=== PATIENT | male | born 1940 | race Caucasian/White ===

== ENCOUNTER → 2016-05-25 | Outpatient (CLI) | payer OTHER ==
[~2016-05-25] MED LIST: CALC600T57 PO; DIGO0.1262; METO-158 PO; PRAV20TA3 PO; WARF2TAB49 PO; ZOLP10TA6
[2016-05-25 09:16] LABS: Basophils # (auto) 0 uL; Basophils % (auto) 0.8 % (0.0-2.0); Eosinophils # (auto) 0.3 uL; Eosinophils % (auto) 4.6 % (0.0-7.0); Hematocrit 45.6 % (41.0-53.0); Hemoglobin 15.5 g/dL (13.5-17.5); Lymphocytes # (auto) 1.3 uL; Lymphocytes % (auto) 22.5 % (10.0-50.0); Mean Corpuscular Hemoglobin 31.2 pg (28.0-32.0); Mean Corpuscular Volume 91.8 fL (80.0-100.0); Mean Platelet Volume 8.2 fL (7.4-10.4); Monocytes # (auto) 0.5 uL; Monocytes % (auto) 8.4 % (0.0-12.0); Neutrophils # (auto) 3.6 uL; Neutrophils % (auto) 63.7 % (37.0-80.0); Platelet Count (auto) 199 10^3/uL (140-450); Urine Bilirubin Negative (Negative); Urine Color Yellow (Yellow); Urine Glucose Normal (Normal); Urine Ketone Negative (Negative); Urine Mucus FEW (None Seen); Urine Nitrite Negative (Negative); Urine RBC 5 /hpf (0 - 3); Urine Squamous Epithelial Cell FEW /hpf (<5); Urine Urobilinogen Normal (Negative); White Blood Cell 5.7 10^3/uL (4.4-10.8)
[2016-05-25 09:18] LABS: Urine Blood 2+ /uL (Negative)
[2016-05-25 09:40] LABS: Albumin 3.7 g/dL (3.4-5.0); BUN/Creatinine Ratio 16.7; Bilirubin, Total 0.7 mg/dL (0.2-1.0); Calcium 8.8 mg/dL (8.5-10.1); Potassium 4.6 mmol/L (3.5-5.1); Total Protein 6.8 g/dL (6.4-8.2)
== END | disposition home or self-care (01) ==
LOC: LAB 08:19
PROVIDERS: ATTEND Internal Medicine
DX: Z00.00 Encounter for general adult medical examination without abnormal findings (principal); I10 Essential (primary) hypertension; E55.9 Vitamin D deficiency, unspecified
CPT/HCPCS: 36415; 80053; 80061; 81001; 82306; 83036; 84153; 85025

== ENCOUNTER → 2016-11-05 | Outpatient (CLI) | payer OTHER ==
[2016-11-05 09:33] LABS: BUN/Creatinine Ratio 15.7; Calcium 8.7 mg/dL (8.5-10.1); Potassium 4.3 mmol/L (3.5-5.1)
== END | disposition home or self-care (01) ==
LOC: LAB 08:39
PROVIDERS: ATTEND Internal Medicine
DX: C61 Malignant neoplasm of prostate (principal); I48.2 Chronic atrial fibrillation; I10 Essential (primary) hypertension
CPT/HCPCS: 36415; 80048; 80061; 84153; 84443

== ENCOUNTER → 2017-08-18 | Outpatient (CLI) | payer OTHER ==
[2017-08-18 08:21] LABS: Basophils # (auto) 0.1 uL; Basophils % (auto) 1.2 % (0.0-2.0); Eosinophils # (auto) 0.2 uL; Hematocrit 45.1 % (41.0-53.0); Hemoglobin 15.2 g/dL (13.5-17.5); Lymphocytes # (auto) 1.2 uL; Lymphocytes % (auto) 23.4 % (10.0-50.0); Mean Corpuscular Hemoglobin 31.3 pg (28.0-32.0); Mean Corpuscular Hgb Conc. 33.7 g/dL (32.0-36.0); Monocytes # (auto) 0.5 uL; Monocytes % (auto) 9.8 % (0.0-12.0); Neutrophils # (auto) 3.1 uL; Neutrophils % (auto) 61.6 % (37.0-80.0); Nucleated Red Blood Cells % 0.1 %; Platelet Count (auto) 169 10^3/uL (140-450); Red Blood Cells 4.85 10^6/uL (4.5-5.90); Red Cell Distribution Width 13.1 % (11.8-14.3)
[2017-08-18 08:51] LABS: Albumin 3.6 g/dL (3.4-5.0); BUN/Creatinine Ratio 18.8; Bilirubin, Total 0.9 mg/dL (0.2-1.0); Calcium 8.9 mg/dL (8.5-10.1); Potassium 4.3 mmol/L (3.5-5.1); Total Protein 6.6 g/dL (6.4-8.2)
== END | disposition home or self-care (01) ==
LOC: LAB 07:42
PROVIDERS: ATTEND Physician Assistant
DX: Z00.01 Encounter for general adult medical examination with abnormal findings (principal); C61 Malignant neoplasm of prostate; I48.2 Chronic atrial fibrillation; R94.6 Abnormal results of thyroid function studies; Z95.2 Presence of prosthetic heart valve
CPT/HCPCS: 36415; 80053; 80061; 84153; 84443; 85025

== ENCOUNTER → 2017-11-16 | Outpatient (CLI) | payer OTHER | END | disposition home or self-care (01) | LOC: XY 08:17 | PROVIDERS: ATTEND Urology | DX: C61 Malignant neoplasm of prostate (principal); I12.9 Hypertensive chronic kidney disease with stage 1 through stage 4 chronic kidney disease, or unspecified chronic kidney disease; N18.9 Chronic kidney disease, unspecified | CPT/HCPCS: 78306; A9503 ==

== ENCOUNTER → 2018-01-31 | Outpatient (CLI) | payer OTHER ==
[~2018-01-31] VITALS: Ht 30.5 cm; Wt 64.9 kg
[~2018-01-31] MED LIST changes: +ADENOSINE 51 MG in GIVE UN-DILUTED 0 ML IV ONE; +ADENOSINE 51 MG in GIVE UN-DILUTED 0 ML IV STA; +ADENOSINE 55 MG in GIVE UN-DILUTED 0 ML IV ONE
[2018-01-31 10:20] VITALS: BP 119/77
== END | disposition home or self-care (01) ==
LOC: XY 08:05
PROVIDERS: ATTEND Internal Medicine
DX: Z48.812 Encounter for surgical aftercare following surgery on the circulatory system (principal); Z95.2 Presence of prosthetic heart valve
CPT/HCPCS: 78452; 93017; A9500; J0153

== ENCOUNTER → 2018-03-01 | Outpatient (CLI) | payer OTHER ==
[~2018-03-01] MED LIST changes: -ADENOSINE 51 MG in GIVE UN-DILUTED 0 ML IV ONE; -ADENOSINE 51 MG in GIVE UN-DILUTED 0 ML IV STA; -ADENOSINE 55 MG in GIVE UN-DILUTED 0 ML IV ONE
== END | disposition home or self-care (01) ==
LOC: XYW 09:49
PROVIDERS: ATTEND Internal Medicine
DX: Z95.2 Presence of prosthetic heart valve (principal)
CPT/HCPCS: 93306

== ENCOUNTER 2018-05-12 17:18 | Inpatient (IN) | payer OTHER ==
[~2018-05-12] VITALS: Ht 162.6 cm; Wt 72.7 kg
[2018-05-12 18:03] VITALS: BP 129/88
[2018-05-12] MEDS ORDERED: BICA50TA41 PO (18:22)
[2018-05-12] MEDS ORDERED: PRAV20TA3 GT (18:22)
[2018-05-12] MEDS ORDERED: CALCTAB25 PO (18:22)
[2018-05-12] MEDS ORDERED: WARF4TAB31 PO ×2 (18:22)
[2018-05-12] MEDS ORDERED: MET50T GT (18:22)
[2018-05-12] MEDS ORDERED: NITROGLYCERIN 0.4 MG SL TAB SL PRN (18:30)
[2018-05-12] MEDS ORDERED: DIGOXIN (250MCG/ML) 2 ML AMPULE IV ONE (18:30)
[2018-05-12] MEDS ORDERED: PROMETHAZINE HCL 25 MG/ML 1ML IV PRN (18:30)
[2018-05-12] MEDS ORDERED: ACETAMINOPHEN 500 MG TAB PO PRN (18:30)
[2018-05-12] MEDS ORDERED: MORPHINE SULFATE 4 MG/ML SYR/VIAL IV PRN (18:30)
[2018-05-12] MEDS ORDERED: TEMAZEPAM 15 MG CAP PO PRN (18:30)
[2018-05-12 18:55] VITALS: BP 127/63
--- NOTE | 2018-05-12 19:50 | NUR ---
Opening Shift Note Assumed care of patient, awake and alert. No S/S of distress/SOB or pain. Instructed on POC and to call for assist PRN, will continue to monitor for changes Q1hr and PRN.
[2018-05-12] MEDS ORDERED: METOPROLOL TARTRATE 50 MG TAB PO ONE (20:00)
[2018-05-12] MEDS ORDERED: THIAMINE HCL 100 MG TAB PO ONE (20:00)
[2018-05-12] MEDS ORDERED: chlordiazePOXIDE HCL 5 MG CAP PO PRN (20:00)
[2018-05-12] MEDS: HYDROcodone-ACET 5/325MG TAB PO PRN (20:18)
[2018-05-12 22:00] VITALS: BP 105/65
[2018-05-12 22:19] LABS: INR 1.65 (0.9-1.15); Prothrombin Time 17.2 sec (9.27-12.13)
[2018-05-12] MEDS: PRAVASTATIN SODIUM 20 MG TAB PO SCH (23:08)
[2018-05-13 01:20] VITALS: BP 116/81
[2018-05-13] MEDS: SODIUM CHLORIDE 0.9% 1,000 ML IV SCH ×3 (01:22→15:17)
[2018-05-13 05:00] VITALS: BP 125/68
[2018-05-13] MEDS: HYDROcodone-ACET 5/325MG TAB PO PRN ×3 (05:42→20:20)
--- NOTE | 2018-05-13 07:15 | NUR ---
Opening Shift Note Assumed care of patient, awake, alert, and oriented x4. No S/S of distress/SOB or pain. IV in right forearm 20 gauge asymptomatic, intact, patent. Bed locked and in lowest position and call light is within reach. Instructed on POC and to call for assist PRN, and patient verbalized understanding. Will continue to monitor for changes Q1hr and PRN.
[2018-05-13 07:54] LABS: INR 1.58 (0.9-1.15); Prothrombin Time 16.5 sec (9.27-12.13)
[2018-05-13 09:00] VITALS: BP 113/68
[2018-05-13] MEDS: BICALUTAMIDE 50 MG TAB PO SCH (10:00)
[2018-05-13] MEDS: NITROGLYCERIN 0.2MG/HR TOPICAL PATCH TD SCH (10:00)
[2018-05-13] MEDS: DIGOXIN 0.125 MG TAB PO SCH (11:02)
[2018-05-13] MEDS: CALCIUM W/VIT D (600MG/400IU) TAB PO SCH (11:02)
[2018-05-13] MEDS: THIAMINE HCL 100 MG TAB PO SCH (11:03)
[2018-05-13] MEDS: PANTOPRAZOLE 40 MG TAB PO SCH (11:04)
[2018-05-13] MEDS: METOPROLOL TARTRATE 50 MG TAB PO SCH ×2 (11:04→22:55)
--- NOTE | 2018-05-13 11:30 | NUR ---
PRODUCTION WELDER, DR. MORA AT BEDSIDE. NEW ORDERS RECEIVED.
[2018-05-13] MEDS ORDERED: ENOXAPARIN SOD 100 MG/1 ML SYRINGE SC ONE (11:45)
[2018-05-13 11:55] LABS: Basophils # (auto) 0 uL; Basophils % (auto) 0.5 % (0.0-2.0); Eosinophils # (auto) 0 uL; Eosinophils % (auto) 0.1 % (0.0-7.0); Hematocrit 41.3 % (41.0-53.0); Lymphocytes # (auto) 0.7 uL; Lymphocytes % (auto) 8.8 % (10.0-50.0); Mean Corpuscular Hemoglobin 31.9 pg (28.0-32.0); Mean Corpuscular Hgb Conc. 33.9 g/dL (32.0-36.0); Mean Corpuscular Volume 94.2 fL (80.0-100.0); Monocytes # (auto) 0.8 uL; Monocytes % (auto) 10.8 % (0.0-12.0); Neutrophils # (auto) 6.2 uL; Neutrophils % (auto) 79.8 % (37.0-80.0); Nucleated Red Blood Cells % 0.1 %; Platelet Count (auto) 124 10^3/uL (140-450); Red Blood Cells 4.38 10^6/uL (4.5-5.90); Red Cell Distribution Width 12.8 % (11.8-14.3); White Blood Cell 7.8 10^3/uL (4.4-10.8)
[2018-05-13 12:03] LABS: Albumin 3.5 g/dL (3.4-5.0); Calcium 8.4 mg/dL (8.5-10.1); Potassium 3.8 mmol/L (3.5-5.1)
[2018-05-13 12:05] LABS: BUN/Creatinine Ratio 16.4; Bilirubin, Total 1.9 mg/dL (0.2-1.0); Total Protein 6.9 g/dL (6.4-8.2)
[2018-05-13 13:00] VITALS: BP 105/78
--- NOTE | 2018-05-13 15:27 | NUR ---
IV insertion IV access obtained, via clean sterile technique by inserting 22 gauge catheter at LEFT FOREARM after 1 attempt. IV secured properly. No trauma to site. Patient tolerated well.
--- NOTE | 2018-05-13 16:01 | NUR ---
RECEIVED CALL FROM DR. MORA HE SAID PATIENT HAS CARDIAC CLEARANCE FOR SURGERY TOMORROW.
[2018-05-13 17:00] VITALS: BP 139/75
[2018-05-13 22:00] VITALS: BP 135/79
[2018-05-13] MEDS: PRAVASTATIN SODIUM 20 MG TAB PO SCH (22:55)
[2018-05-13] MEDS: ENOXAPARIN SOD 80 MG/0.8ML SYRINGE SC SCH (22:56)
[2018-05-14] MEDS: LORazepam 0.5 MG TAB PO PRN (00:21)
[2018-05-14] MEDS: SODIUM CHLORIDE 0.9% 1,000 ML IV SCH ×3 (00:59→23:08)
[2018-05-14] MEDS ORDERED: DIGOXIN (250MCG/ML) 2 ML AMPULE IV ONE ×2 (01:30→11:00)
[2018-05-14] MEDS: MORPHINE SULFATE 4 MG/ML SYR/VIAL IV PRN (05:08)
[2018-05-14 05:50] VITALS: BP 129/70
--- NOTE | 2018-05-14 07:30 | NUR ---
Opening Shift Note Assumed care of patient, awake, alert, and oriented x4. No S/S of distress/SOB, but patient is reporting left hip pain of 3/10. IV in right forearm 20 gauge asymptomatic, intact, patent, and infusing normal saline @ 100 mL/hour. IV in left forearm 22 gauge asymptomatic, intact, patent, and saline locked. Bed locked and in lowest position and call light is within reach, is at bedside. Instructed on POC and to call for assist PRN, and patient verbalized understanding. Will continue to monitor for changes Q1hr and PRN.
[2018-05-14 09:00] VITALS: BP 135/79
[2018-05-14] MEDS: HYDROcodone-ACET 5/325MG TAB PO PRN (09:28)
[2018-05-14] MEDS: BICALUTAMIDE 50 MG TAB PO SCH (10:00)
[2018-05-14] MEDS: NITROGLYCERIN 0.2MG/HR TOPICAL PATCH TD SCH (10:00)
[2018-05-14] MEDS: THIAMINE HCL 100 MG TAB PO SCH (10:30)
[2018-05-14] MEDS: CALCIUM W/VIT D (600MG/400IU) TAB PO SCH (10:31)
[2018-05-14] MEDS: DIGOXIN 0.125 MG TAB PO SCH (10:32)
[2018-05-14] MEDS: METOPROLOL TARTRATE 50 MG TAB PO SCH ×2 (10:33→21:52)
[2018-05-14] MEDS: PANTOPRAZOLE 40 MG TAB PO SCH (10:33)
[2018-05-14] MEDS: ENOXAPARIN SOD 80 MG/0.8ML SYRINGE SC SCH ×2 (10:34→21:42)
[2018-05-14] MEDS ORDERED: DILTIAZEM HCL 25 MG/5 ML VIAL IV ONE (11:00)
--- NOTE | 2018-05-14 11:00 | NUR ---
WOUND CARE NOTE: ADDED PATIENT TO [facility] MONITORING D/T LOW HOANG AND LEFT HIP FRACTURE. PATIENT ADMITTED TO [facility] WITH DIAGNOSIS OF LEFT HIP FRACTURE. HE WAS NOTED UPON ADMIT TO HAVE A SMALL ABRASION TO THE RIGHT PALMAR HAND, ECCHYMOSIS/ABRASIONS NOTED TO BUE, SCABBED ABRASION TO THE LEFT EAR. ALL WOUNDS WERE PHOTOGRAPHED UPON ADMIT BY BEDSIDE NURSE. PATIENT HAS CURRENT HOANG SCORE OF 12. 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 NO OPEN OR DRAINING WOUNDS NOTED AT THIS TIME. PATIENT WOULD BENEFIT FROM: FREQUENT TURN SCHEDULE Q 2 HOURS, PRN CONDITION PERMITS, WITH PRESSURE REDISTRIBUTION USING PILLOWS/WEDGES, BID/PRN APPLICATION WITH MOISTURE BARRIER CREAM, OPTIFOAM GENTLE SACRAL DRESSING PREVENTATIVE, DIETARY CONSULT FOR LOW HOANG, CONTINUED MONITORING BY WOUND CARE TEAM.
--- NOTE | 2018-05-14 11:15 | NUR ---
A-FIB WITH RVR DARRICK CALLED TO REPORT PATIENT WAS IN A-FIB W/ RVR, WITH HEART RATE OF >170. PAGED EMULSION OPERATOR DR. MORA, AND RECEIVED CALL BACK FROM DR. MORA IMMEDIATELY, AND RECEIVED NEW ORDERS. WILL CONTINUE TO MONITOR PATIENT, NO DISTRESS NOTED AT THIS TIME; PATIENT RESTING IN BED.
--- NOTE | 2018-05-14 11:40 | NUR ---
F/U VITALS FOR A-FIB RVR BP 144/76 mmHg, HR 144 BPM, 02% 90.
[2018-05-14] MEDS ORDERED: DILTIAZEM 125mg/125ml BAG KIT 125 ML IV SCH (12:45)
[2018-05-14 13:00] VITALS: BP_SYST 128; BP_SYST 134; BP_DIAS 69; BP_DIAS 76
[2018-05-14 16:48] VITALS: BP 128/69
--- NOTE | 2018-05-14 19:40 | NUR ---
Opening Shift Note Assumed care of patient, awake and alert. No S/S of distress/SOB or pain. Noted traction on left leg at 5 lbs. Sitter at bedside. Instructed on POC and to call for assist PRN, patient verbalized understanding, will continue to monitor for changes Q1hr and PRN.
[2018-05-14] MEDS: PRAVASTATIN SODIUM 20 MG TAB PO SCH (21:42)
[2018-05-14 22:00] VITALS: BP 147/83
[2018-05-15] MEDS: HYDROcodone-ACET 5/325MG TAB PO PRN ×3 (02:23→22:05)
[2018-05-15] MEDS: LORazepam 0.5 MG TAB PO PRN ×2 (02:24→23:59)
[2018-05-15 06:01] VITALS: BP 115/65
[2018-05-15] MEDS: SODIUM CHLORIDE 0.9% 1,000 ML IV SCH ×2 (06:22→15:26)
[2018-05-15 06:48] LABS: Basophils # (auto) 0 uL; Basophils % (auto) 0.5 % (0.0-2.0); Eosinophils # (auto) 0 uL; Eosinophils % (auto) 0.3 % (0.0-7.0); Hematocrit 37.6 % (41.0-53.0); Lymphocytes # (auto) 0.7 uL; Lymphocytes % (auto) 9.4 % (10.0-50.0); Mean Corpuscular Hemoglobin 32.1 pg (28.0-32.0); Mean Corpuscular Hgb Conc. 34.7 g/dL (32.0-36.0); Mean Corpuscular Volume 92.6 fL (80.0-100.0); Monocytes # (auto) 0.9 uL; Monocytes % (auto) 11.7 % (0.0-12.0); Neutrophils # (auto) 5.9 uL; Neutrophils % (auto) 78.1 % (37.0-80.0); Platelet Count (auto) 127 10^3/uL (140-450); Red Blood Cells 4.06 10^6/uL (4.5-5.90); Red Cell Distribution Width 12.5 % (11.8-14.3); White Blood Cell 7.6 10^3/uL (4.4-10.8)
[2018-05-15 06:53] LABS: INR 1.34 (0.9-1.15); Prothrombin Time 14.1 sec (9.27-12.13)
[2018-05-15 09:00] VITALS: BP 123/77
[2018-05-15] MEDS: ENOXAPARIN SOD 80 MG/0.8ML SYRINGE SC SCH ×2 (09:37→22:00)
[2018-05-15] MEDS: CALCIUM W/VIT D (600MG/400IU) TAB PO SCH (09:38)
[2018-05-15] MEDS: THIAMINE HCL 100 MG TAB PO SCH (09:38)
[2018-05-15] MEDS: DILTIAZEM HCL 120MG ER CAP PO SCH (09:38)
[2018-05-15] MEDS: DIGOXIN 0.125 MG TAB PO SCH (09:39)
[2018-05-15] MEDS: METOPROLOL TARTRATE 50 MG TAB PO SCH ×2 (09:39→21:27)
[2018-05-15] MEDS: PANTOPRAZOLE 40 MG TAB PO SCH (09:39)
[2018-05-15] MEDS: NITROGLYCERIN 0.2MG/HR TOPICAL PATCH TD SCH (09:40)
[2018-05-15] MEDS: BICALUTAMIDE 50 MG TAB PO SCH (09:40)
[2018-05-15 09:42] LABS: Urine Bacteria NONE SEEN /hpf (None Seen); Urine Blood 1+ /uL (Negative); Urine Hyaline Cast FEW /lpf (0 - 2); Urine Mucus FEW (None Seen); Urine Specific Gravity 1.015 (1.001-1.035); Urine WBC <1 /hpf (0 - 3)
--- NOTE | 2018-05-15 10:32 | NUR ---
PT SEEN BY DR. ARCHER HE SPOKE WITH DR. GALVAN, PER DR. ARCHER PT WILL BE SCHEDULED FOR SURGERY TOMORROW. DR. ARCHER ORDERED TO HOLD 2200 DOSE OF LOVENOX. WILL INFORM ASSEMBLER LEATHER GOODS NURSE. Addendum: 05/15/18 at 1043 by Ailin Mane RN PT MADE AWARE HE WILL BE SCHEDULED TOMORROW FOR HIP SURGERY.
--- NOTE | 2018-05-15 12:38 | NUR ---
Nutrition Consult/assessment Notes Please see attached link for complete assessment Est. Needs based on BW (66 kg): 5635-2575 kcal (25-30 kcal/kgBW), 66-85 gms pro (1.0-1.3 gms/kgBW d/t wounds). Will continue to monitor pertinent labs and reassess nutrient need prn Addendum: 05/15/18 at [address] Amended: Links added.
[2018-05-15 13:00] VITALS: BP 123/75
--- NOTE | 2018-05-15 14:12 | NUR ---
PAIN LEFT HIP PAIN 8/10, NORCO GIVEN ORDERED, WILL CONTINUE TO MONITOR.
[2018-05-15 16:55] VITALS: BP 122/72
--- NOTE | 2018-05-15 19:35 | NUR ---
Opening Shift Note Assumed care of patient, awake and alert. No S/S of distress/SOB or pain. Traction on left leg at 5 lbs noted. Instructed on POC and to be NPO after MN, for surgery tomorrow, patient verbalized understanding, instructed to call for assist prn, call light within reach, will continue to monitor for changes Q1hr and PRN.
[2018-05-15] MEDS: PRAVASTATIN SODIUM 20 MG TAB PO SCH (21:27)
[2018-05-16] MEDS: SODIUM CHLORIDE 0.9% 1,000 ML IV SCH ×2 (02:22→15:45)
--- NOTE | 2018-05-16 03:30 | NUR ---
CHG wipes done, linens changed, maintained on NPO, patient verbalized understanding, will continue to monitor
[2018-05-16 06:12] VITALS: BP 128/67
[2018-05-16 06:45] LABS: BUN/Creatinine Ratio 20.8; Calcium 7.6 mg/dL (8.5-10.1); Potassium 3.3 mmol/L (3.5-5.1)
--- NOTE | 2018-05-16 07:00 | NUR ---
Opening Shift Note Assumed care of patient, awake and alert to person, place, and situation. No S/S of distress/SOB or pain. 5 lb traction to left leg. Instructed on POC and to call for assist PRN. Bed locked in the lowest position. Bed rails up x2. Call light in reach.
--- NOTE | 2018-05-16 08:15 | NUR ---
OFF UNIT TO PREOP NO S/S OF DISTRESS NOTED AT THIS TIME.
[2018-05-16] MEDS: HYDROcodone-ACET 5/325MG TAB PO PRN ×2 (08:20→21:36)
[2018-05-16 08:26] VITALS: BP 148/90
[2018-05-16] MEDS ORDERED: ceFAZolin 1GM/50ML 50 ML IV ONE (08:34)
[2018-05-16] MEDS ORDERED: TETRACAINE 1% INJ 2 ML VIAL IJ ONE (08:48)
[2018-05-16] MEDS ORDERED: ONDANSETRON HCL 4 MG/2 ML VIAL ONE (08:49)
[2018-05-16] MEDS ORDERED: PROPOFOL 10 MG/ML 20 ML IV ONE (08:49)
[2018-05-16] MEDS ORDERED: MIDAZOLAM HCL 1MG/1ML-2 ML VIAL ONE (08:49)
[2018-05-16] MEDS ORDERED: MORPHINE SULF(PF) 0.5MG/ML 10ML VIAL ONE (08:49)
[2018-05-16] MEDS ORDERED: fentaNYL CITRATE 100 MCG/2 ML VL ONE (08:53)
[2018-05-16] MEDS: BICALUTAMIDE 50 MG TAB PO SCH ×2 (10:00→14:08)
[2018-05-16] MEDS: NITROGLYCERIN 0.2MG/HR TOPICAL PATCH TD SCH (10:00)
[2018-05-16] MEDS: ENOXAPARIN SOD 80 MG/0.8ML SYRINGE SC SCH ×2 (10:00→21:35)
[2018-05-16] MEDS ORDERED: diphenhdrAMINE HCL 50 MG/1 ML VL IV PRN (10:15)
[2018-05-16] MEDS ORDERED: METOCLOPRAMIDE HCL 5MG/ml INJ 2ml VIAL IV ONE (10:15)
[2018-05-16] MEDS ORDERED: HYDROmorphone HCL 2 MG/ML VL IV PRN (10:15)
[2018-05-16] MEDS ORDERED: NALOXONE HCL 0.4 MG/ML VIAL IV PRN ×2 (10:15)
[2018-05-16] MEDS ORDERED: POTASSIUM EFFERVESENT TAB 25 MEQ PO ONE (12:15)
[2018-05-16] MEDS: DIGOXIN 0.125 MG TAB PO SCH (12:27)
[2018-05-16] MEDS: PANTOPRAZOLE 40 MG TAB PO SCH (12:28)
[2018-05-16] MEDS: THIAMINE HCL 100 MG TAB PO SCH (12:28)
--- NOTE | 2018-05-16 12:30 | NUR ---
BACK TO UNIT DRESSING TO LT HIP CLEAN, DRY, AND INTACT. PATIENT IS ON 4L NC SPO2. AT THE BEDSIDE.
[2018-05-16] MEDS: METOPROLOL TARTRATE 50 MG TAB PO SCH ×2 (12:31→21:36)
[2018-05-16] MEDS: DILTIAZEM HCL 120MG ER CAP PO SCH (12:32)
[2018-05-16] MEDS: CALCIUM W/VIT D (600MG/400IU) TAB PO SCH (12:32)
--- NOTE | 2018-05-16 13:41 | NUR ---
CALLED DR ARCHER TO REPORT PATIENTS HEART RATE 150-174 ORDER OF CARDIZEM 10MG IV ONCE RECEIVED WILL IMPLEMENT ORDERS.
[2018-05-16] MEDS ORDERED: DILTIAZEM HCL 25 MG/5 ML VIAL IV ONE ×2 (13:45→16:15)
--- NOTE | 2018-05-16 14:00 | NUR ---
A. FIB RVR COVERING NURSE PAGED DR. ARCHER AND RECEIVED ORDERS FOR PATIENTS HEART RHYTHM OF A. FIB RVR 180BPM. SEE eMAR.
--- NOTE | 2018-05-16 16:15 | NUR ---
Jaspreet. FIB RVR RECEIVED CALL FROM [facility]. PATIENTS HEART RHYTHM IS A. FIB RVR IN THE 170S. SPOKE WITH DR. ARCHER. NEW ORDER RECEIVED. ORDER READ BACK AND VERIFIED. Addendum: 05/16/18 at 1630 by Alexa Silva RN PAGED DOWNSTAIRS MAID DR. MORA. AWAITING CALL BACK.
--- NOTE | 2018-05-16 16:26 | NUR ---
CALLED BACK DR. MORA AWARE OF A. FIB RVR WITH A RATE OF 176BMP. NEW ORDERS RECEIVED. ORDERS READ BACK AND VERIFIED. Addendum: 05/16/18 at 1630 by Alexa Silva RN PER DR. MORA. OK TO HOLD CARDIZEM IV ORDERED BY DR. ARCHER. HR IS CURRENTLY 100BPM.
[2018-05-16] MEDS ORDERED: DILTIAZEM HCL 120MG ER CAP PO ONE (16:30)
[2018-05-16 17:15] VITALS: BP 126/67
--- NOTE | 2018-05-16 18:00 | NUR ---
PATIENT MENTATION PATIENT IS A/O X4. PATIENT IS TAKING OFF OXYGEN AND OXYGENATION DROPPED TO 80%. PATIENT PLACED ON CONTINUOUS PULSE OX. 4L NC REPLACED. SPO2 INCREASED TO 92%. INSTRUCTED PATIENT TO LEAVE OXYGEN ON. FAMILY AT THE BEDSIDE. PATIENT VERBALIZED UNDERSTANDING. CHIEF FINANCIAL OFFICERCAROL DIXON. SITTER ASSIGNED FOR CHOIR SINGER FOR SAFETY.
--- NOTE | 2018-05-16 19:00 | NUR ---
CLOSING NOTE Patient is awake and alert. No S/S of distress/SOB or pain. Dressing to LT hip clean, dry, and intact. Bed locked in the lowest position. Bed rails up x2. Call light in reach. Endorsed care to housing development specialist nurse.
--- NOTE | 2018-05-16 19:35 | NUR ---
Opening Shift Note Assumed care of patient, awake and alert. No S/S of distress/SOB or pain. Dressing to left hip dry and intact. Maintained on O2 at 4Lpm/NC sating 90%-91%. Updated on POC and to call for assist PRN, patient verbalized understanding, sitter at bedside, will continue to monitor for changes Q1hr and PRN.
--- NOTE | 2018-05-16 20:54 | NUR ---
Transferred patient to [place] [id number] with all personal belongings, sitter at bedside, will continue to monitor
[2018-05-16] MEDS: PRAVASTATIN SODIUM 20 MG TAB PO SCH (21:35)
[2018-05-16 21:48] VITALS: BP 111/54
[2018-05-17] MEDS: MORPHINE SULFATE 4 MG/ML SYR/VIAL IV PRN (01:12)
[2018-05-17] MEDS: SODIUM CHLORIDE 0.9% 1,000 ML IV SCH ×2 (03:44→17:15)
[2018-05-17 05:01] VITALS: BP 100/49
--- NOTE | 2018-05-17 07:35 | NUR ---
Opening Shift Note Assumed care of patient, awake and alert. No S/S of distress/SOB or pain reported at this time. Dressing to left hip CDI, salgado patent and draining via gravity. currently on 5L via NC, o2 93%. Instructed on POC and to call for assist PRN, call light within reach, Sitter at bedside for safety, will continue to monitor for changes Q1hr and PRN.
[2018-05-17 08:00] VITALS: BP 119/56
[2018-05-17 08:48] VITALS: BP 119/56
--- NOTE | 2018-05-17 09:01 | NUR ---
PAGED ORTHO PAGED DR GALVAN REGARDING PHYSICAL THERAPY AND DRESSING CHANGES, CONT CARE
[2018-05-17] MEDS: METOPROLOL TARTRATE 50 MG TAB PO SCH ×2 (09:25→21:15)
[2018-05-17] MEDS: CALCIUM W/VIT D (600MG/400IU) TAB PO SCH (09:25)
[2018-05-17] MEDS: PANTOPRAZOLE 40 MG TAB PO SCH (09:25)
[2018-05-17] MEDS: HYDROcodone-ACET 5/325MG TAB PO PRN ×2 (09:26→22:21)
[2018-05-17] MEDS: THIAMINE HCL 100 MG TAB PO SCH (09:26)
[2018-05-17] MEDS: ENOXAPARIN SOD 80 MG/0.8ML SYRINGE SC SCH ×2 (09:26→21:16)
[2018-05-17] MEDS: DIGOXIN 0.125 MG TAB PO SCH (09:27)
[2018-05-17] MEDS: BICALUTAMIDE 50 MG TAB PO SCH (09:29)
[2018-05-17] MEDS: NITROGLYCERIN 0.2MG/HR TOPICAL PATCH TD SCH (09:30)
[2018-05-17] MEDS: DILTIAZEM HCL 120MG ER CAP PO SCH (10:00)
--- NOTE | 2018-05-17 10:00 | NUR ---
MD DR ARCHER AT BEDSIDE, DISCUSSING POC WITH PT, PT AXOX4, CONT CARE
[2018-05-17] MEDS ORDERED: AZITHROMYCIN 500MG/ 250ML 250 ML IV ONE (10:15)
[2018-05-17] MEDS ORDERED: PANTOPRAZOLE 40 MG/10 ML VIAL IV ONE (10:15)
[2018-05-17] MEDS ORDERED: cefTRIAXone 1GM/50ML D5W 50 ML IV ONE (10:15)
[2018-05-17 10:30] LABS: Basophils # (auto) 0 uL; Basophils % (auto) 0.2 % (0.0-2.0); Eosinophils # (auto) 0 uL; Eosinophils % (auto) 0.1 % (0.0-7.0); Hematocrit 33.4 % (41.0-53.0); Hemoglobin 11.7 g/dL (13.5-17.5); Lymphocytes # (auto) 0.4 uL; Lymphocytes % (auto) 4.5 % (10.0-50.0); Mean Corpuscular Hemoglobin 32.5 pg (28.0-32.0); Mean Corpuscular Hgb Conc. 35.2 g/dL (32.0-36.0); Mean Corpuscular Volume 92.3 fL (80.0-100.0); Monocytes # (auto) 1.1 uL; Monocytes % (auto) 11.6 % (0.0-12.0); Neutrophils # (auto) 8.2 uL; Neutrophils % (auto) 83.6 % (37.0-80.0); Platelet Count (auto) 136 10^3/uL (140-450); Red Blood Cells 3.61 10^6/uL (4.5-5.90); Red Cell Distribution Width 12.6 % (11.8-14.3); White Blood Cell 9.8 10^3/uL (4.4-10.8)
--- NOTE | 2018-05-17 10:30 | NUR ---
OOB TO CHAIR PHYSICAL THERAPY ASSISTED PT TO CHAIR, PT TOLERATED WELL, SITTER AT BEDSIDE FOR SAFETY, CONT CARE Addendum: 05/17/18 at 1726 by Denise Ashraf RN PER PHYSICAL THERAPIST, DURING THERAPY SESSION, O2 SAT DECREASED TO 85% AND SESSION WAS ENDED AT THAT TIME, PT WA RETURNED TO CHAIR, WHEN ASSESSED PT O2 @4L VIA NC AND O2 SAT 92%, NO DISTRESS WAS NOTED
[2018-05-17 10:35] LABS: Albumin 2.7 g/dL (3.4-5.0); Calcium 8.4 mg/dL (8.5-10.1); Potassium 3.6 mmol/L (3.5-5.1)
[2018-05-17 10:38] LABS: BUN/Creatinine Ratio 29.8
[2018-05-17 10:40] LABS: Bilirubin, Total 1.6 mg/dL (0.2-1.0); Total Protein 5.4 g/dL (6.4-8.2)
--- NOTE | 2018-05-17 11:01 | NUR ---
CARDIO PAGED DR MORA PAGED, REGARDING CARDIZEM ADMINISTRATION, MEDICATION WAS HELD TO MORNING, PULSE 77, DIGOXIN AND METOPROLOL WAS GIVEN, DR ARCHER AWARE AND REQUESTED THAT DR MORA BE NOTICED, CONT CARE
--- NOTE | 2018-05-17 11:05 | NUR ---
DRESSING CHANGE LEFT HIP DRESSING CHANGE, IRRIGATE WITH NS AND PADDED WITH STERILE GAUZE, SITE ASSESSED, NO DRAINAGE, FOUL ODOR OR REDNESS NOTED, 9 GUILLE WELL APPROXIMATED, COVERED WITH PRIMAPORE DRESSING, PT TOLERATED WELL, CONT CARE
--- NOTE | 2018-05-17 11:30 | NUR ---
INCENTIVE SPIROMETRY PT INSTRUCTED TO USE IS Q1HR AND WA TOLERATED, PT ABLE TO RETURN DEMONSTRATION AND RISE IS TO 1000 X3M, PT TOLERATED WELL, NO C/O SOB, WILL CONT AND ENCOURAGE IS, CURRENTLY ON 3L VIA NCM O2 93%, CONT TO CLOSELY MONITOR
[2018-05-17 12:10] VITALS: BP 114/60
--- NOTE | 2018-05-17 14:19 | NUR ---
CARDIO DR MORA AT NURSING STATION, CLARIFIED MEDICATION, PER MD PATIENT SHOULD CONTINUE CARDIZEM AND DIGOXIN, AND DISCONTINUE METOPROLOL, AND RESUME COUMADIN, RE-CONFIRMED VERBAL ORDERS, CONT CARE
[2018-05-17 15:42] LABS: INR 1.54 (0.9-1.15); Partial Thromboplastin Time 39.7 sec (23.78-33.04); Prothrombin Time 16.1 sec (9.27-12.13)
[2018-05-17 16:04] VITALS: BP 109/59
[2018-05-17] MEDS ORDERED: WARFARIN SODIUM 2.5 MG TAB PO ONE (17:00)
[2018-05-17] MEDS ORDERED: WARFARIN SODIUM 5 MG TAB PO ONE (17:00)
--- NOTE | 2018-05-17 17:13 | NUR ---
PT CARE ENDORSED TO EVERARDO MEDINA PT CURRENTLY AWAKE, AXOX4, FAMILY AT BEDSIDE, O2 94% ON 3L VIA SIMPLE MASK, NO C/O PAIN AT THIS TIME
--- NOTE | 2018-05-17 17:15 | NUR ---
RECEIVED PT FROM KASSANDRA. PT IN BED, AWAKE AND ALERT X 4, EATING DINNER. AT BEDSIDE. DENIES PAIN OR SOB AT THIS TIME.
--- NOTE | 2018-05-17 18:57 | NUR ---
PER PT, DR GALVAN CAME IN TO SEE HIM ABOUT 20 MINS AGO.
--- NOTE | 2018-05-17 19:30 | NUR ---
OPENING NOTE REPORT RECEIVED FROM DAY SHIFT RN. PATIENT IS A/OX4, RESTING IN BED. DRESSING TO LEFT HIP WITH MINIMAL DRAINAGE NOTED, LAST DRESSING CHANGE TODAY 05/17/18. ROSALES HANGING TO GRAVITY. SITTER AT BEDSIDE FOR PATIENT SAFETY. PATIENT ON 4L NC, WITH SPO2 AT 91-92%, NO SIGNS OF DISTRESS NOTED. POC DISCUSSED. CALL LIGHT WITHIN REACH.
--- NOTE | 2018-05-17 19:31 | NUR ---
CARE ENDORSED TO KADEN EVANS RN/
[2018-05-17 21:14] VITALS: BP 118/64
[2018-05-17] MEDS: PRAVASTATIN SODIUM 20 MG TAB PO SCH (21:15)
[2018-05-18 05:25] VITALS: BP 130/63
[2018-05-18 06:54] LABS: INR 1.41 (0.9-1.15); Partial Thromboplastin Time 39.2 sec (23.78-33.04); Prothrombin Time 14.8 sec (9.27-12.13)
--- NOTE | 2018-05-18 07:29 | NUR ---
CLOSING NOTE REPORT ENDORSED TO DAY SHIFT RN PATIENT SITTING IN BED, WATCHING TV. NO S/S OF DISTRESS. DRESSING TO LEFT HIP C/D/I. ROSALES DRAINING TO GRAVITY. CALL LIGHT WITHIN REACH, SITTER AT BEDSIDE FOR SAFETY
--- NOTE | 2018-05-18 07:30 | NUR ---
Received report that patient's O2 Saturation drops when off O2 via nasal cannula. Patient in bed, on O2 at 3 LPM, no acute distress noted. Sitter at bedside.
--- NOTE | 2018-05-18 08:10 | NUR ---
Patient's heart Rate on Tele reading over 100s, Sinus Tachycardia, with periods of V-Tach. Patient on bedpan trying to have bowel movement. Sitter at bedside.
[2018-05-18 08:15] VITALS: BP 117/68
--- NOTE | 2018-05-18 08:45 | NUR ---
Dr. Izaguirre came over for Cardiology follow up. MD ordered to continue patient on Coumadin and Lovenox as ordered.
--- NOTE | 2018-05-18 08:47 | NUR ---
Called Pharmacy regarding Coumadin. Pharmacist said patient is on Coumadin as per Pharmacy protocol.
[2018-05-18 08:50] VITALS: BP 128/68
[2018-05-18] MEDS: NITROGLYCERIN 0.2MG/HR TOPICAL PATCH TD SCH (10:00)
--- NOTE | 2018-05-18 10:10 | NUR ---
Wilder Muir at bedside. Patient complained of constipation. Dr. Francisco ordered Lactulose 60 ml PO one time only. MD made aware if patient needs a NM VQ Scan. No order for NM VQ Scan as per .
--- NOTE | 2018-05-18 10:12 | NUR ---
Patient on Physical Therapy at this time with Jonathan. Juan Carlos Beltre at bedside.
--- NOTE | 2018-05-18 10:25 | NUR ---
Patient denies chest pain, refused Nitroglycerin patch.
[2018-05-18] MEDS ORDERED: LACTULOSE 20Gm/30ML SOLN PO ONE (10:30)
[2018-05-18] MEDS: HYDROcodone-ACET 5/325MG TAB PO PRN ×2 (10:30→21:31)
--- NOTE | 2018-05-18 10:30 | NUR ---
Patient stated his left hip pain level at 7/10 at this time. [place] 5/325 PO given as ordered.
[2018-05-18] MEDS: cefTRIAXone 1GM/50ML D5W 50 ML IV SCH (10:31)
[2018-05-18] MEDS: PANTOPRAZOLE 40 MG/10 ML VIAL IV SCH (10:31)
[2018-05-18] MEDS: ENOXAPARIN SOD 80 MG/0.8ML SYRINGE SC SCH ×2 (10:32→21:31)
[2018-05-18] MEDS: DILTIAZEM HCL 120MG ER CAP PO SCH (10:34)
[2018-05-18] MEDS: DIGOXIN 0.125 MG TAB PO SCH (10:34)
[2018-05-18] MEDS: CALCIUM W/VIT D (600MG/400IU) TAB PO SCH (10:35)
[2018-05-18] MEDS: METOPROLOL TARTRATE 50 MG TAB PO SCH ×2 (10:35→21:31)
[2018-05-18] MEDS: THIAMINE HCL 100 MG TAB PO SCH (10:36)
[2018-05-18] MEDS: AZITHROMYCIN 500MG/ 250ML 250 ML IV SCH (10:36)
[2018-05-18] MEDS: SODIUM CHLORIDE 0.9% 1,000 ML IV SCH (10:38)
[2018-05-18] MEDS: BICALUTAMIDE 50 MG TAB PO SCH (10:38)
--- NOTE | 2018-05-18 11:00 | NUR ---
Will change the left hip surgical dressing after physical therapy.
--- NOTE | 2018-05-18 12:10 | NUR ---
Dr. Ortiz (for Ortho) came over to see the patient. Patient sitting in chair.
--- NOTE | 2018-05-18 12:12 | NUR ---
Patient had soft formed, large stools/bowel movement as per Sitter/ANDRÉS Beltre.
--- NOTE | 2018-05-18 12:14 | NUR ---
Patient sitting in chair, eating lunch. Sitter at bedside. Family member at bedside
[2018-05-18 13:00] VITALS: BP 100/50
--- NOTE | 2018-05-18 14:24 | NUR ---
assessment Patient is a 78 year old male who is alert and oriented. Patients cognitive abilities are intact. Prior to admission patient lived home with his Chayo and functioned independently. Patient informed me he is able to care for his own ADLs. Per patient he will return home to his prior living arrangements post discharge and family will transport him home. Patient had a fall at home carrying multiple bags out the door and trying to hold the door for his . Patient has a hip fracture. Patient has no DME at home. Patient will need a fww and home health for PT on discharge. I informed patient he has a right to speak to a social problems specialist regarding all care. I informed patient he has a right to participate in any and all discharge planning. Patient is aware of visiting hours on the hospital floor. I informed patient he has a right to privacy. Patient does not have a POA and advanced directive. I have offered patient information on POA and advanced directives. I informed the patient the advantages and benefits of having an Advanced Directive. Patient verbalized understanding and agreed to discharge plan. Patient has been given his 2nd medicare notice for steps to appeal. Patient has been explained his rights and understands his right for the appeal process. Addendum: 05/18/18 at 1427 by Agueda PARKS Amended: Links added.
--- NOTE | 2018-05-18 14:30 | NUR ---
Patient had a bowel movement. Moderate amount of brown, liquid stools noted on the pad cair.
--- NOTE | 2018-05-18 14:30 | NUR ---
Changed the surgical dressing on the left hip with bordered gauze, ramy intact, no active bleeding at this time, will continue to monitor. Sitter at bedside.
[2018-05-18 17:00] VITALS: BP 119/64
[2018-05-18] MEDS ORDERED: WARFARIN SODIUM 2.5 MG TAB PO ONE (17:00)
--- NOTE | 2018-05-18 20:00 | NUR ---
OPENING NOTE RECEIVED REPORT FROM DAYSHIFT RN. ASSUMING ROLE OF CARE OF PATIENT AT THIS TIME. PATIENT SHOWING NO SIGN OF DISTRESS, SHORTNESS OF BREATH, AND PATIENT DENIES ANY PAIN AT THIS TIME. PATIENT EDUCATED ON PLAN OF CARE FOR THE NIGHT AND PATIENT VERBALIZED UNDERSTANDING. BED LOWERED, CALL LIGHT WITHIN REACH AND PATIENT WILL BE ROUNDED ON EVERY HOUR AND NEEDED.
[2018-05-18] MEDS: PRAVASTATIN SODIUM 20 MG TAB PO SCH (21:31)
[2018-05-18 21:38] VITALS: BP 121/68
[2018-05-19] MEDS: SODIUM CHLORIDE 0.9% 1,000 ML IV SCH ×2 (02:35→20:01)
[2018-05-19 05:00] VITALS: BP 131/68
[2018-05-19] MEDS: HYDROcodone-ACET 5/325MG TAB PO PRN ×3 (05:16→21:35)
[2018-05-19 05:40] LABS: Basophils # (auto) 0 uL; Basophils % (auto) 0.5 % (0.0-2.0); Eosinophils # (auto) 0.2 uL; Hematocrit 31.2 % (41.0-53.0); Hemoglobin 11.3 g/dL (13.5-17.5); Lymphocytes # (auto) 0.6 uL; Lymphocytes % (auto) 7.8 % (10.0-50.0); Mean Corpuscular Hemoglobin 33.1 pg (28.0-32.0); Mean Corpuscular Hgb Conc. 36.2 g/dL (32.0-36.0); Mean Corpuscular Volume 91.3 fL (80.0-100.0); Monocytes # (auto) 0.7 uL; Monocytes % (auto) 9.1 % (0.0-12.0); Neutrophils # (auto) 5.7 uL; Neutrophils % (auto) 79.6 % (37.0-80.0); Nucleated Red Blood Cells % 0.1 %; Platelet Count (auto) 165 10^3/uL (140-450); Red Blood Cells 3.41 10^6/uL (4.5-5.90); Red Cell Distribution Width 12.6 % (11.8-14.3); White Blood Cell 7.2 10^3/uL (4.4-10.8)
[2018-05-19 05:51] LABS: INR 2.3 (0.9-1.15); Prothrombin Time 23.5 sec (9.27-12.13)
--- NOTE | 2018-05-19 08:43 | NUR ---
ORDER AND CLINICALS FAXED TO [facility] AND REQUESTING WALKER TO BE DELIVERED TO BEDSIDE. ALSO FAXED TO [facility] REQUESTING AUTH FOR BOTH.
[2018-05-19 08:56] VITALS: BP 127/76
--- NOTE | 2018-05-19 09:20 | NUR ---
Wilder Muir came over. made aware that patient's O2 Saturation drops without O2 via nasal cannula at 4 LPM; patient prefers going home when discharge but he's concern if his will be able to take care of him on daily basis. Dr. Francisco to put in new orders.
--- NOTE | 2018-05-19 09:27 | NUR ---
Wilder Muir at bedside.
[2018-05-19] MEDS: NITROGLYCERIN 0.2MG/HR TOPICAL PATCH TD SCH (10:00)
--- NOTE | 2018-05-19 10:10 | NUR ---
Patient on Physical Therapy at this time.
[2018-05-19] MEDS: cefTRIAXone 1GM/50ML D5W 50 ML IV SCH (10:20)
[2018-05-19] MEDS: ENOXAPARIN SOD 80 MG/0.8ML SYRINGE SC SCH ×2 (10:21→21:36)
[2018-05-19] MEDS: AZITHROMYCIN 500MG/ 250ML 250 ML IV SCH (10:21)
[2018-05-19] MEDS: PANTOPRAZOLE 40 MG/10 ML VIAL IV SCH (10:21)
[2018-05-19] MEDS: CALCIUM W/VIT D (600MG/400IU) TAB PO SCH (10:21)
[2018-05-19] MEDS: THIAMINE HCL 100 MG TAB PO SCH (10:22)
[2018-05-19] MEDS: METOPROLOL TARTRATE 50 MG TAB PO SCH ×2 (10:23→21:34)
[2018-05-19] MEDS: DIGOXIN 0.125 MG TAB PO SCH (10:23)
[2018-05-19] MEDS: DILTIAZEM HCL 120MG ER CAP PO SCH (10:29)
[2018-05-19] MEDS: BICALUTAMIDE 50 MG TAB PO SCH (10:29)
--- NOTE | 2018-05-19 12:44 | NUR ---
Nutrition Consult/ Follow-up Notes Wt.: 77.8 kg Pt was awake and oriented with family by bedside. per pt has no N/V and appetite is now improving. per pt eating better since this am. per pt was on warfarin even at home and has been edu on Lo K at his Coumadin clinic. per pt monitors his IRN regularly. diet edu re enforced. pt is currently on regular diet with adequate PO of 75% x 5 per RN doc Est. Needs based on BW (66 kg): 3719-7533 kcal (25-30 kcal/kgBW), 66-85 gms pro (1.0-1.3 gms/kgBW d/t wounds). Will continue to monitor pertinent labs and reassess nutrient need prn Labs: No new labs today 05/17: CA 8.4 L, SHWETHA 1.6 H, ALB 2.7 L. Skin: French scale 15, mod risk, incision on hip due to sx per RN doc GI: Pt had 3 BM today per settlement clerk. PES: Altered nutrition related lab values r/t current/chronic medical condition aeb hypocalcemia, hyperbil Will continue to monitor PO intake, skin status, pertinent labs and weight trend. F/u in 3-5 days. Rec.: 1.) consider MVI./C bid for skin care. 2) continue current plan of care
[2018-05-19 13:00] VITALS: BP 104/54
[2018-05-19 17:03] VITALS: BP 103/51
--- NOTE | 2018-05-19 17:28 | NUR ---
Dr. Ortiz came over to see the patient.
--- NOTE | 2018-05-19 17:30 | NUR ---
Changed the bordered gauze dressing on the left hip. No active bleeding noted, surgical ramy intact.
--- NOTE | 2018-05-19 19:00 | NUR ---
Patient qualifies for home O2 as per Respiratory Therapy.
--- NOTE | 2018-05-19 19:30 | NUR ---
OPENING NOTE REPORT RECEIVED FROM DAY SHIFT RN. PATIENT RESTING IN BED COMFORTABLY WITH NO SIGNS OF DISTRESS NOTED DRESSING TO LEFT HIP C/D/I PATIENT EDUCATED ON PLAN OF CARE FOR THE NIGHT AND VERBALIZED UNDERSTANDING SITTER AT BEDSIDE BED IN LOW POSITION, CALL LIGHT WITHIN REACH Signed: 05/20/18 at 0122 by GILBERTO ATKINS SN <Co-Signature Required> Co-Signed: 05/20/18 at 0122 by Lisa Ashton RN
[2018-05-19] MEDS: PRAVASTATIN SODIUM 20 MG TAB PO SCH (21:35)
[2018-05-20 05:13] VITALS: BP 131/65
[2018-05-20 05:35] LABS: Partial Thromboplastin Time 48.8 sec (23.78-33.04); Prothrombin Time 43.5 sec (9.27-12.13)
[2018-05-20 05:39] LABS: INR 4.42 (0.9-1.15)
[2018-05-20] MEDS: HYDROcodone-ACET 5/325MG TAB PO PRN ×4 (05:57→22:52)
--- NOTE | 2018-05-20 06:00 | NUR ---
PAGED HOSPITALIST RE: CRITICAL LAB VALUE (INR 4.42) WILL WAIT FOR CALL BACK
--- NOTE | 2018-05-20 06:15 | NUR ---
RECEIVED CALL BACK FROM HOSPITALIST VITO NEW ORDER TO HOLD COUMADIN FOR TODAY
--- NOTE | 2018-05-20 07:28 | NUR ---
CLOSING NOTE Report endorsed to day shift RN Dressing to left hip is C/D/I Patient is resting with no signs of distress and has no complaints of pain at this time Bed in low position, call light within reach. Signed: 05/20/18 at 730 by GILBERTO ATKINS <Co-Signature Required> Co-Signed: 05/20/18 at 730 by Lisa Ashton RN
--- NOTE | 2018-05-20 07:30 | NUR ---
Opening Shift Note Received report from Lisa MEDINA. Assumed care of patient, awake and alert. No S/S of distress/SOB. Reported tolerable left hip pain s/p hip nailing due to fracture. Increasing pain when moves. Patient and requesting SNF transfer. Will ff up hospitalist today. NOted left hip dressing dry & intact. Instructed on POC and to call for assist PRN, will continue to monitor for changes Q1hr and PRN.
[2018-05-20 08:00] VITALS: BP 112/67
[2018-05-20 08:08] LABS: Basophils # (auto) 0 uL; Basophils % (auto) 0.5 % (0.0-2.0); Eosinophils # (auto) 0.2 uL; Eosinophils % (auto) 3.5 % (0.0-7.0); Hematocrit 32.7 % (41.0-53.0); Hemoglobin 11.2 g/dL (13.5-17.5); Lymphocytes # (auto) 0.6 uL; Lymphocytes % (auto) 9.9 % (10.0-50.0); Mean Corpuscular Hemoglobin 31.8 pg (28.0-32.0); Mean Corpuscular Hgb Conc. 34.3 g/dL (32.0-36.0); Mean Corpuscular Volume 92.6 fL (80.0-100.0); Monocytes # (auto) 0.7 uL; Monocytes % (auto) 10.4 % (0.0-12.0); Neutrophils # (auto) 4.8 uL; Neutrophils % (auto) 75.7 % (37.0-80.0); Platelet Count (auto) 220 10^3/uL (140-450); Red Blood Cells 3.53 10^6/uL (4.5-5.90); Red Cell Distribution Width 12.7 % (11.8-14.3); White Blood Cell 6.3 10^3/uL (4.4-10.8)
[2018-05-20 09:05] VITALS: BP 112/67
--- NOTE | 2018-05-20 09:30 | NUR ---
Dr. meghana Francisco at bedside.
[2018-05-20] MEDS: PANTOPRAZOLE 40 MG/10 ML VIAL IV SCH (09:55)
[2018-05-20] MEDS: cefTRIAXone 1GM/50ML D5W 50 ML IV SCH (09:55)
[2018-05-20] MEDS: NITROGLYCERIN 0.2MG/HR TOPICAL PATCH TD SCH ×2 (09:56→10:00)
[2018-05-20] MEDS: THIAMINE HCL 100 MG TAB PO SCH (09:56)
[2018-05-20] MEDS: CALCIUM W/VIT D (600MG/400IU) TAB PO SCH (09:57)
[2018-05-20] MEDS: METOPROLOL TARTRATE 50 MG TAB PO SCH ×2 (09:57→21:12)
[2018-05-20] MEDS: DILTIAZEM HCL 120MG ER CAP PO SCH (09:57)
[2018-05-20] MEDS: DIGOXIN 0.125 MG TAB PO SCH (09:57)
[2018-05-20] MEDS: BICALUTAMIDE 50 MG TAB PO SCH (10:02)
--- NOTE | 2018-05-20 10:20 | NUR ---
Wound Care Wound care provided per MD order. Noted dry & intact staple incisions. Cleaned with sterile NS then patted dry with sterile gauze. Applied povidone iodine. Covered with dressing Patient tolerated well and verbalized dressing care instructions.
--- NOTE | 2018-05-20 10:50 | NUR ---
NOTED SWOLLEN SCROTUM, INFORMED DR. Courtney ARCHER. RECEIVED VERBAL ORDER TO DC ROSALES CATHETER, AND HAVE JORDAN OF TESTICLE.
[2018-05-20] MEDS: AZITHROMYCIN 500MG/ 250ML 250 ML IV SCH (11:48)
--- NOTE | 2018-05-20 12:00 | NUR ---
PAGED ON-CALL ACTIVE DIRECTORY ARCHITECT ABOUT PATIENT'S SS CONSULT FOR SNF PLACEMENT POSS DC TOMORROW.
--- NOTE | 2018-05-20 12:15 | NUR ---
RECEIVED A CALL FROM ADMINISTRATIVE ASSISTANT COORDINATOR TO FAX THE FF FORM TO [facility]: FACE SHEET, H&P, P.T. NOTES, CHEST XRAY. LABS AND MEDS. FAX THE FF TO: [phone]
--- NOTE | 2018-05-20 13:30 | NUR ---
Salgado catheter dc'd Order to discontinue salgado catheter. Salgado dc'd with clean technique following deflation of balloon. Patient tolerated well with no complaints of pain. Continue care.
--- NOTE | 2018-05-20 13:50 | NUR ---
FAXED THE FORMS TO [facility].
--- NOTE | 2018-05-20 14:21 | NUR ---
TRANSACTION FAX REPORT RECEIVED: ERROR. FAXED THE FORMS AGAIN TO [facility].
--- NOTE | 2018-05-20 16:00 | NUR ---
PATIENT URINATES, NO COMPLAINTS MADE.
--- NOTE | 2018-05-20 16:00 | NUR ---
FAXED FORMS 6X TO [facility] AND ALWAYS ERROR TRANSACTION REPORT. BLADE SHARPENER DEBORA MADE AWARE.
[2018-05-20 16:55] VITALS: BP 119/66
[2018-05-20] MEDS: SODIUM CHLORIDE 0.9% 1,000 ML IV SCH (18:33)
--- NOTE | 2018-05-20 19:30 | NUR ---
OPENING NOTE REPORT RECEIVED FROM DAY SHIFT RN PATIENT IS A/OX4 RESTING IN BED. NO S/S OF DISTRESS NOTED. PATIENT ON 4L NC WITH SPO2 AT 93%. LEFT HIP INCISION SITE DRESSING IS C/D/I. PATIENT IS ABLE TO TURN AND REPOSITION WITH MINIMAL ASSISTANCE. PATIENT NO LONGER HAS ROSALES IN PLACE AND IS ABLE TO USE THE URINAL WITHOUT ANY DIFFICULTIES. INCENTIVE SPIROMETER AT BEDSIDE AND PATIENT ABLE TO DEMONSTRATE APPROPRIATE USE. POC FOR TONIGHT DISCUSSED, ALL QUESTIONS ANSWERED. WILL MONITOR Q1H PRN THROUGHOUT SHIFT. SITTER AT BEDSIDE FOR PATIENT SAFETY. CALL LIGHT WITHIN REACH.
[2018-05-20] MEDS: PRAVASTATIN SODIUM 20 MG TAB PO SCH (21:11)
[2018-05-20 22:00] VITALS: BP 123/74
[2018-05-21] MEDS: SODIUM CHLORIDE 0.9% 1,000 ML IV SCH ×2 (04:58→21:39)
[2018-05-21 05:11] VITALS: BP 114/66
[2018-05-21 06:01] LABS: INR 3.49 (0.9-1.15); Partial Thromboplastin Time 43.2 sec (23.78-33.04); Prothrombin Time 34.8 sec (9.27-12.13)
--- NOTE | 2018-05-21 07:06 | NUR ---
CLOSING NOTE REPORT ENDORSED TO DAY SHIFT RN PATIENT RESTING IN BED. DRESSING TO LEFT HIP C/D/I. NO SIGNS OF DISTRESS. SITTER AT BEDSIDE. CALL LIGHT WITHIN REACH
--- NOTE | 2018-05-21 07:10 | NUR ---
Opening Shift Note Received report from Lisa MEDINA. Assumed care of patient, awake and alert. No S/S of distress/SOB. Reported tolerable left hip pain due to s/p left hip nailing last 05/16. Noted dry & intact dressing on incision site. Instructed on POC and to call for assist PRN, will continue to monitor for changes Q1hr and PRN.
--- NOTE | 2018-05-21 08:20 | NUR ---
FF UP REGULATOR MECHANIC, SPOKE WITH GONSALO AND SAID THAT PATIENT DOES NOT QUALIFY FOR SNF. PATIENT WALKED WITH WALKER 100FT YESTERDAY ASSISTED BY THE P.T. [facility] WILL DO THE SERVICE POST DISCHARGE, FWW WAS DELIVERED ALREADY AT BEDSIDE. WILL INFORM THE HOSPITALIST TODAY.
[2018-05-21 09:03] VITALS: BP 135/70
[2018-05-21] MEDS: NITROGLYCERIN 0.2MG/HR TOPICAL PATCH TD SCH (10:00)
--- NOTE | 2018-05-21 10:00 | NUR ---
Dr. Courtney Francisco at bedside. Received verbal order to hold coumadin today and tomorrow (3-17 and 3-18). Informed about the SNF not qualified. Dr. Francisco wants the socially responsible investment adviser/ block and case maker to talk to the patient themselves tomorrow. wants the SNF placement due to patient's would not be able to help when they get home even with home health services.
[2018-05-21] MEDS: cefTRIAXone 1GM/50ML D5W 50 ML IV SCH (10:27)
[2018-05-21] MEDS: PANTOPRAZOLE 40 MG/10 ML VIAL IV SCH (10:28)
[2018-05-21] MEDS: DILTIAZEM HCL 120MG ER CAP PO SCH (10:29)
[2018-05-21] MEDS: CALCIUM W/VIT D (600MG/400IU) TAB PO SCH (10:29)
[2018-05-21] MEDS: BICALUTAMIDE 50 MG TAB PO SCH (10:30)
[2018-05-21] MEDS: DIGOXIN 0.125 MG TAB PO SCH (10:30)
[2018-05-21] MEDS: METOPROLOL TARTRATE 50 MG TAB PO SCH ×2 (10:30→21:39)
[2018-05-21] MEDS: THIAMINE HCL 100 MG TAB PO SCH (10:30)
--- NOTE | 2018-05-21 10:50 | NUR ---
P.T. WALKING WITH PATIENT. DARRICK CALLED, PATIENT'S HEART RATE WENT UP TO 170-180/MIN. P.T. MADE AWARE. PATIENT NOT IN RESPIRATORY DISTRESS, WALKING WELL. ADVISED TO SLOW DOWN.
--- NOTE | 2018-05-21 11:15 | NUR ---
IV removal NOted IV site tenderness. IV DC'd with clean sterile technique, catheter fully intact. Pressure dressing applied to site. Patient tolerated well.
--- NOTE | 2018-05-21 11:30 | NUR ---
IV insertion IV access obtained, via clean sterile technique by inserting gauge catheter 22 at RIGHT antecubital after 3 attempts. IV secured properly. No trauma to site. Patient tolerated well.
[2018-05-21] MEDS: AZITHROMYCIN 500MG/ 250ML 250 ML IV SCH (12:00)
[2018-05-21] MEDS: HYDROcodone-ACET 5/325MG TAB PO PRN ×2 (12:00→21:39)
[2018-05-21 13:00] VITALS: BP 106/65
[2018-05-21 17:32] VITALS: BP 136/67
--- NOTE | 2018-05-21 18:32 | NUR ---
WOUND CARE NOTE: Wound care in to see patient for skin integrity monitoring. Patient is resting in bed in Rm. 278A. He's awake, alert and oriented. He's in no stated pain at this time. He's able to assist in turning and repositioning. HIs current French score is 17. Skin assessment done with the assistance of patient' s nurse, CAROL Mays. L hip surgical incision has C/D/I dressing on just changed by patient's nurse. Abrasions to Rt palmar and R ear are resolved with pink intact skin, clean and dry, left open to air. Ecchymosis to R medial calf remain intact. No pressure injury related issue noted. Repositioned patient for comfort on his back. Patient tolerated well. Wound care education provided, emphasizing the importance of frequent turning and repositioning in pressure redistribution for pressure ulcer prevention. Patient verbalized understanding. Bed in low position, call perry within reach, all safety precaution sin placed, family at bedside. RECOMMENDATION: Continuation of all wound care orders prescribed by MD, continue with skin/wound plan of care, continue monitoring by wound care while patient is hospitalized.
--- NOTE | 2018-05-21 19:30 | NUR ---
OPENING NOTE REPORT RECEIVED FROM DAY SHIFT RN PATIENT IS A/OX4 RESTING IN BED, NO S/S OF DISTRESS. DRESSING TO LEFT HIP C/D/I. INCENTIVE SPIROMETER AT BEDSIDE AND PATIENT ABLE TO USE IT APPROPRIATELY. POC FOR TONIGHT DISCUSSED, ALL QUESTIONS ANSWERED. WILL MONITOR Q1H PRN THROUGHOUT SHIFT, CALL LIGHT WITHIN REACH.
[2018-05-21 21:36] VITALS: BP 122/73
[2018-05-21] MEDS: PRAVASTATIN SODIUM 20 MG TAB PO SCH (21:39)
[2018-05-22 05:18] VITALS: BP 123/71
[2018-05-22 06:00] LABS: INR 2.16 (0.9-1.15); Partial Thromboplastin Time 41.8 sec (23.78-33.04); Prothrombin Time 22.1 sec (9.27-12.13)
[2018-05-22] MEDS: HYDROcodone-ACET 5/325MG TAB PO PRN ×3 (06:52→20:14)
--- NOTE | 2018-05-22 07:10 | NUR ---
CLOSING NOTE REPORT ENDORSED TO DAY SHIFT RNMARIANA PT IS RESTING IN BED. DRESSING TO LEFT HIP C/D/I. STABLE THROUGHOUT NIGHT CALL LIGHT WITHIN REACH
--- NOTE | 2018-05-22 07:15 | NUR ---
Opening Shift Note REceived report from Lisa MEDINA. Assumed care of patient, awake and alert. No S/S of distress/SOB or pain. Noted dry & intact dressing on left hip. Instructed on POC and to call for assist PRN, will continue to monitor for changes Q1hr and PRN.
--- NOTE | 2018-05-22 08:40 | NUR ---
solid waste facility operator 05/20/18-I received a page from nurse Mays letting me know that there was a social service consult for SNF for this patient-I asked her to fax the SNF packet to [facility].
[2018-05-22 09:28] LABS: Basophils # (auto) 0 uL; Basophils % (auto) 0.8 % (0.0-2.0); Eosinophils # (auto) 0.2 uL; Eosinophils % (auto) 2.7 % (0.0-7.0); Hematocrit 33.9 % (41.0-53.0); Hemoglobin 11.7 g/dL (13.5-17.5); Lymphocytes # (auto) 0.5 uL; Lymphocytes % (auto) 7.8 % (10.0-50.0); Mean Corpuscular Hemoglobin 31.9 pg (28.0-32.0); Mean Corpuscular Hgb Conc. 34.4 g/dL (32.0-36.0); Mean Corpuscular Volume 92.7 fL (80.0-100.0); Monocytes # (auto) 0.6 uL; Monocytes % (auto) 9.3 % (0.0-12.0); Neutrophils # (auto) 5.3 uL; Neutrophils % (auto) 79.4 % (37.0-80.0); Nucleated Red Blood Cells % 0.1 %; Platelet Count (auto) 262 10^3/uL (140-450); Red Blood Cells 3.66 10^6/uL (4.5-5.90); Red Cell Distribution Width 13.2 % (11.8-14.3); White Blood Cell 6.7 10^3/uL (4.4-10.8)
[2018-05-22 09:31] LABS: BUN/Creatinine Ratio 15.4; Potassium 3.2 mmol/L (3.5-5.1)
[2018-05-22 09:47] VITALS: BP 127/67
[2018-05-22] MEDS: NITROGLYCERIN 0.2MG/HR TOPICAL PATCH TD SCH (10:00)
--- NOTE | 2018-05-22 10:00 | NUR ---
Vic ADORNO AT BEDSIDE. PATIENT WALKS WITH WALKER. TOLERATED WELL.
[2018-05-22] MEDS: PANTOPRAZOLE 40 MG/10 ML VIAL IV SCH (10:01)
[2018-05-22] MEDS: cefTRIAXone 1GM/50ML D5W 50 ML IV SCH (10:01)
[2018-05-22] MEDS: BICALUTAMIDE 50 MG TAB PO SCH (10:02)
[2018-05-22] MEDS: CALCIUM W/VIT D (600MG/400IU) TAB PO SCH (10:02)
[2018-05-22] MEDS: METOPROLOL TARTRATE 50 MG TAB PO SCH ×2 (10:02→21:37)
[2018-05-22] MEDS: DIGOXIN 0.125 MG TAB PO SCH (10:02)
[2018-05-22] MEDS: DILTIAZEM HCL 120MG ER CAP PO SCH (10:02)
[2018-05-22] MEDS: THIAMINE HCL 100 MG TAB PO SCH (10:03)
--- NOTE | 2018-05-22 10:27 | NUR ---
ORDER FAXED TO HOME CARE REQUESTING BEDSIDE COMMODE. ALSO FAXED TO [facility] FOR AUTH.
--- NOTE | 2018-05-22 10:30 | NUR ---
RECEIVED A CALL FROM [employer]FFIC CONTROL SPECIALIST, GONSALO, THAT BEDSIDE COMMODE WILL BE REQUESTED. ONCE GRANTED, IT WILL BE DELIVERED TO PATIENT'S HOME. PATIENT AND MADE AWARE AND VERBALIZED UNDERSTANDING.
--- NOTE | 2018-05-22 10:34 | NUR ---
re-assessment Per ss consult cannot take care of patient at home. 2 nd ss consult, requesting SNF placement, prefers [facility], 3 rd ss consult bedside commode. I informed patients that patient does not qualify for SNF. Patient is ambulating 100 feet on yesterday. I have provided Chayo with private pay caregiver resources. Chayo verbalized understanding and agreed to take patient home. Bedside commaudrey is being satisfied by June in case management and Tad manager case management. Addendum: 05/22/18 at 1041 by Agueda Diop Amended: Links added.
[2018-05-22] MEDS: AZITHROMYCIN 500MG/ 250ML 250 ML IV SCH (11:20)
--- NOTE | 2018-05-22 11:30 | NUR ---
SPOKE WITH GONSALO, PATIENT'S HOME HEALTH SERVICES WILL BE FROM [place]. PATIENT AND FAMILY MADE AWARE AND VERBALIZED UNDERSTANDING. AWAITING ABG IF QUALIFIES FOR HOME OXYGEN.
--- NOTE | 2018-05-22 11:45 | NUR ---
Dr. Courtney Francisco at bedside. Received verbal order to give patient Potassium 20mes PO x1.
--- NOTE | 2018-05-22 11:55 | NUR ---
CALLED DR. GALVAN'S OFFICE, SCHEDULED PATIENT FOR FF UP ON JUNE 02, 2018 AT 1:45PM. PATIENT MADE AWARE AND VERBALIZED UNDERSTANDING.
[2018-05-22] MEDS ORDERED: POTASSIUM CHL 20 Meq TABLET PO ONE (12:00)
--- NOTE | 2018-05-22 12:06 | NUR ---
RECEIVED VERBAL ORDER FROM DR. ARCHER TO GIVE THE COUMADIN DOSE THIS AFTERNOON IF THE PATIENT IS STILL HERE.
--- NOTE | 2018-05-22 12:25 | NUR ---
PAGELaura R.TChristin FOR STAT ABG FOR HOME O2 IF PATIENT QUALIFIES.
--- NOTE | 2018-05-22 12:27 | NUR ---
Regla CALLED BACK, SAID SHE WILL CALL IF PATIENT QUALIFIES. PATIENT REQUESTED TO GET HIS ABG AFTER LUNCH.
--- NOTE | 2018-05-22 13:15 | NUR ---
R.T. PAGED TO FF UP PATIENT'S BLOOD EXTRACTION FOR ABG WITH CO-OX. INFORMED R.T. THAT PATIENT HAS A DISCHARGE ORDER TODAY.
[2018-05-22] MEDS: SODIUM CHLORIDE 0.9% 1,000 ML IV SCH (13:35)
--- NOTE | 2018-05-22 14:10 | NUR ---
ABG: PO2 IS 40.8. PATIENT QUALIFIES FOR HOME OXYGEN. ANGELA BENCH MOLDER APPRENTICE MADE AWARE.
[2018-05-22 14:37] VITALS: BP 116/70
--- NOTE | 2018-05-22 14:37 | NUR ---
ORDER, CLINICALS, AND LABS FAXED TO HOME CARE REQUESTING HOME OXYGEN. ALSO FAXED TO [facility] FOR AUTHORIZATION.
--- NOTE | 2018-05-22 15:30 | NUR ---
re-assessment Per Laurence at [facility] Transport [phone] she will set up transport for 845pm today post discharge. Addendum: 05/22/18 at 1708 by Agueda PARKS Amended: Links added.
--- NOTE | 2018-05-22 15:40 | NUR ---
TOOK PICTURES OF WOUNDS REFERENCE FOR DISCHARGE. FILLED OUT WOUND CARE FORMS.
[2018-05-22 15:42] VITALS: BP 116/70
--- NOTE | 2018-05-22 16:00 | NUR ---
FF UP ANGELA REGARDING HOME OXYGEN AND BEDSIDE COMMODE. SAID MANAGED CARE STILL PROCESSING THEM. FF UP SG TO CALL LATER AT [phone].B DEVICES WILL BE DELIVERED AT BEDSIDE.
--- NOTE | 2018-05-22 16:20 | NUR ---
HOME CARE WILL DELIVER OXYGEN TO BEDSIDE BETWEEN 5:30PM AND 7:30PM [facility]. PHONE NUMBER [phone]
--- NOTE | 2018-05-22 16:30 | NUR ---
CALLED MERISSA, PATIENT'S , TO INFORM ABOUT THE DELIVERY TIME OF HOME OXYGEN. SAID SHE WILL COME TO [facility] WHEN OXYGEN IS DELIVERED.
[2018-05-22] MEDS ORDERED: WARFARIN SODIUM 2 MG TAB PO ONE ×2 (17:00)
[2018-05-22 17:03] VITALS: BP 120/69
--- NOTE | 2018-05-22 17:04 | NUR ---
re-assessment Per Laurence at [facility] transport she cannot accommodate transport tonight. Per Laurence she will set up transport for the am and call Tabatha MEDINA with transport time. Addendum: 05/22/18 at 1708 by Agueda PARKS Amended: Links added.
--- NOTE | 2018-05-22 17:10 | NUR ---
PATIENT'S INFORMED ABOUT THE SET UP TRANSPORT PENDING FOR TOMORROW MORNING.
--- NOTE | 2018-05-22 17:10 | NUR ---
CHANGED DISCHARGE DATE PROTOCOL. TRANSPORT IS AVAILABLE TOMORROW MORNING.
--- NOTE | 2018-05-22 18:30 | NUR ---
CALLED [facility], SPOKE WITH AFTER HOURS EXCHANGE. SAID THAT PATIENT IS STILL LISTED FOR 8:45PM TONIGHT FOR TRANSPORT INTERNET SOURCER TIME. INFORMED THAT PER JOSE C THEY COULDN'T INTERNET SOURCER THE PATIENT TONIGHT. EXCHANGE SAID THAT THEY WILL LOOK INTO IT AND WILL UPDATE THE PRIMARY NURSE. GAVE [facility] CONTACT # AND [employer] IN CASE THEY CALL AFTER 1900.
--- NOTE | 2018-05-22 18:38 | NUR ---
[facility] EXCHANGE CALLED BACK, SAID THAT TRANSPORT MIGHT WATCH REPAIR PERSON THE PATIENT AT 2044 TONIGHT. PATIENT AND MADE AWARE.
--- NOTE | 2018-05-22 18:45 | NUR ---
INFORMED LOTTERY MANAGER GONSALO ABOUT THE [facility] TRANSPORT EITHER COMING TONIGHT AROUND 2044 OR TOMORROW MORNING. PATIENT AND MADE AWARE AND VERBALIZED UNDERSTANDING THAT IF TRANSPORT WILL NOT COME TONIGHT, IT WILL BE TOMORROW MORNING. WILL ENDORSE TO NIGHT NURSE. BEDSIDE COMMODE ALREADY DELIVERED TO PATIENT'S HOUSE PER PATIENT'S . STILL AWAITING HOME OXYGEN TO BE DELIVERED AT BEDSIDE.
--- NOTE | 2018-05-22 20:15 | NUR ---
Opening Shift Note Assumed care of pt., pt. sitting up in bed watching television. No S/S of distress or SOB, no pain noted or reported at this time. Instructed on POC, pt. verbalized understanding. Instructed to call for assistance as needed. Bed locked in lowest position, call light within reach. Will continue to monitor q1hr and PRN throughout shift.
[2018-05-22] MEDS: PRAVASTATIN SODIUM 20 MG TAB PO SCH (21:36)
[2018-05-22 22:36] VITALS: BP 141/61
[2018-05-23] MEDS: HYDROcodone-ACET 5/325MG TAB PO PRN ×2 (03:18→11:00)
[2018-05-23 05:46] VITALS: BP 140/84
[2018-05-23 06:28] LABS: INR 2.2 (0.9-1.15); Partial Thromboplastin Time 40.6 sec (23.78-33.04); Prothrombin Time 22.5 sec (9.27-12.13)
[2018-05-23] MEDS: SODIUM CHLORIDE 0.9% 1,000 ML IV SCH (06:29)
--- NOTE | 2018-05-23 07:55 | NUR ---
Opening Shift Note Assumed care of patient, awake, alert, and oriented x4. Patient has no complaints of pain at this time. Patient has IV in right AC 22g saline locked and flushing well, patient tolerating well. Patient is on 4L NC with no S/S of distress/SOB. Patient has optifoam to sacrum for preventative measures and left hip dressing CDI. Instructed on POC and to call for assist PRN, will continue to monitor for changes Q1hr and PRN. Bed in lowest locked position, call light within reach.
[2018-05-23 08:00] VITALS: BP 129/73
[2018-05-23] MEDS: AZITHROMYCIN 500MG/ 250ML 250 ML IV SCH (09:09)
[2018-05-23] MEDS: PANTOPRAZOLE 40 MG/10 ML VIAL IV SCH (09:09)
[2018-05-23] MEDS: cefTRIAXone 1GM/50ML D5W 50 ML IV SCH (09:09)
[2018-05-23 09:10] VITALS: BP 129/73
[2018-05-23] MEDS: DILTIAZEM HCL 120MG ER CAP PO SCH (09:11)
[2018-05-23] MEDS: DIGOXIN 0.125 MG TAB PO SCH (09:12)
[2018-05-23] MEDS: METOPROLOL TARTRATE 50 MG TAB PO SCH (09:13)
[2018-05-23] MEDS: CALCIUM W/VIT D (600MG/400IU) TAB PO SCH (09:13)
[2018-05-23] MEDS: THIAMINE HCL 100 MG TAB PO SCH (09:14)
[2018-05-23] MEDS: NITROGLYCERIN 0.2MG/HR TOPICAL PATCH TD SCH (09:15)
[2018-05-23] MEDS: BICALUTAMIDE 50 MG TAB PO SCH (09:15)
--- NOTE | 2018-05-23 11:31 | NUR ---
DISCHARGE Discharge instructions given as ordered. Encourage to follow up with PMD as instructed. All questions and concerns addressed. Patient verbalized understanding. Medication reconciliation form completed and copy given to patient. IV removed with catheter intact, pressure dressing applied. Patient taken to vehicle via wheelchair with all personal belongings, accompanied by staff. No distress noted at time of departure.
[2018-05-23] MEDS ORDERED: WARFARIN SODIUM 5 MG TAB PO ONE (17:00)
== END 2018-05-23 11:30 | disposition home health service (06) | DRG 480 ==
LOC: TELE-WESTW 17:26
PROVIDERS: ADMIT Family Medicine; ATTEND Family Medicine
PROC: 0QS706Z Reposition Left Upper Femur with Intramedullary Internal Fixation Device, Open Approach (ICD-10-PCS; principal; 2018-05-16 09:13)
DX: S72.145A Nondisplaced intertrochanteric fracture of left femur, initial encounter for closed fracture (principal); J18.1 Lobar pneumonia, unspecified organism; I48.92 Unspecified atrial flutter; I47.1 Supraventricular tachycardia; I50.40 Unspecified combined systolic (congestive) and diastolic (congestive) heart failure; I11.0 Hypertensive heart disease with heart failure; E78.5 Hyperlipidemia, unspecified; I25.10 Atherosclerotic heart disease of native coronary artery without angina pectoris; I48.91 Unspecified atrial fibrillation; M19.90 Unspecified osteoarthritis, unspecified site; G89.4 Chronic pain syndrome; Z96.652 Presence of left artificial knee joint; E78.00 Pure hypercholesterolemia, unspecified; W01.0XXA Fall on same level from slipping, tripping and stumbling without subsequent striking against object, initial encounter; N43.3 Hydrocele, unspecified; Z95.5 Presence of coronary angioplasty implant and graft; Z95.2 Presence of prosthetic heart valve; Z88.8 Allergy status to other drugs, medicaments and biological substances; Z87.891 Personal history of nicotine dependence; Z85.46 Personal history of malignant neoplasm of prostate; Z80.1 Family history of malignant neoplasm of trachea, bronchus and lung; Z82.3 Family history of stroke; Z82.49 Family history of ischemic heart disease and other diseases of the circulatory system; Z83.3 Family history of diabetes mellitus; Y93.89 Activity, other specified; Y92.098 Other place in other non-institutional residence as the place of occurrence of the external cause; Y99.8 Other external cause status
CPT/HCPCS: 36415; 36600; 71045; 73501; 73502; 76000; 76870; 80048; 80053; 81001; 82805; 84443; 85025; 85610; 85730; 93005; 97110; 97116; 97163; 97530; A4565; A6257; C1713; C1769; C9113; G0378; J0690; J0696; J2250; J2405; J2704

== ENCOUNTER → 2018-06-12 | Outpatient (CLI) | payer OTHER, MEDICARE, BC ==
[~2018-06-12] MED LIST changes: +BICA50TA41 PO; +CALCTAB25 PO; +MET50T GT; +PRAV20TA3 GT; +WARF4TAB31 PO
== END | disposition home or self-care (01) ==
LOC: LAB 09:20
PROVIDERS: ATTEND Physician Assistant
DX: C61 Malignant neoplasm of prostate (principal)
CPT/HCPCS: 84153

== ENCOUNTER → 2019-03-05 | Outpatient (CLI) | payer OTHER, MEDICARE ==
[~2019-03-05] MED LIST changes: +WARF4TAB PO; -WARF4TAB31 PO
[2019-03-05 08:10] LABS: Basophils # (auto) 0.1 uL; Basophils % (auto) 1.1 % (0.0-2.0); Eosinophils # (auto) 0.2 uL; Eosinophils % (auto) 5.3 % (0.0-7.0); Hematocrit 44.7 % (41.0-53.0); Hemoglobin 15.5 g/dL (13.5-17.5); Lymphocytes # (auto) 0.9 uL; Lymphocytes % (auto) 19.8 % (10.0-50.0); Mean Corpuscular Hemoglobin 32.5 pg (28.0-32.0); Mean Corpuscular Hgb Conc. 34.6 g/dL (32.0-36.0); Mean Corpuscular Volume 93.8 fL (80.0-100.0); Monocytes # (auto) 0.4 uL; Monocytes % (auto) 9.2 % (0.0-12.0); Neutrophils % (auto) 64.6 % (37.0-80.0); Nucleated Red Blood Cells % 0.1 %; Platelet Count (auto) 151 10^3/uL (140-450); Red Blood Cells 4.77 10^6/uL (4.5-5.90); Red Cell Distribution Width 13.4 % (11.8-14.3); White Blood Cell 4.7 10^3/uL (4.4-10.8)
[2019-03-05 09:12] LABS: Albumin 3.8 g/dL (3.4-5.0); Potassium 4.1 mmol/L (3.5-5.1)
[2019-03-05 09:20] LABS: BUN/Creatinine Ratio 17.5; Calcium 8.8 mg/dL (8.5-10.1); Total Protein 6.8 g/dL (6.4-8.2)
== END | disposition home or self-care (01) ==
LOC: LAB 07:41
PROVIDERS: ATTEND Physician Assistant
DX: I50.22 Chronic systolic (congestive) heart failure (principal); I48.20 Chronic atrial fibrillation, unspecified; R97.20 Elevated prostate specific antigen [PSA]; I10 Essential (primary) hypertension; N52.9 Male erectile dysfunction, unspecified; E78.5 Hyperlipidemia, unspecified
CPT/HCPCS: 36415; 80053; 80061; 84153; 85025

== ENCOUNTER → 2020-05-21 | Outpatient (CLI) | payer OTHER, MEDICARE ==
[~2020-05-21] MED LIST changes: +CALC1TAB92 PO; -CALC600T57 PO; -WARF4TAB PO; +WARF4TAB2 PO
[2020-05-21 08:26] LABS: Basophils # (auto) 0 10 ^3/uL (0-0.2); Eosinophils # (auto) 0.1 10 ^3/uL (0-0.8); Eosinophils % (auto) 2.7 % (0.0-7.0); Hematocrit 43.1 % (41.0-53.0); Hemoglobin 14.9 g/dL (13.5-17.5); Lymphocytes # (auto) 1.1 10 ^3/uL (0.4-5.4); Lymphocytes % (auto) 24.1 % (10.0-50.0); Mean Corpuscular Hemoglobin 32.4 pg (28.0-32.0); Mean Corpuscular Hgb Conc. 34.6 g/dL (32.0-36.0); Mean Corpuscular Volume 93.5 fL (80.0-100.0); Monocytes # (auto) 0.4 10 ^3/uL (0-1.3); Monocytes % (auto) 10.2 % (0.0-12.0); Neutrophils # (auto) 2.7 10 ^3/uL (1.6-8.6); Nucleated Red Blood Cells % 0.1 %; Platelet Count (auto) 157 10^3/uL (140-450); Red Cell Distribution Width 13.4 % (11.8-14.3); White Blood Cell 4.4 10^3/uL (4.4-10.8)
[2020-05-21 09:14] LABS: Albumin 3.9 g/dL (3.4-5.0)
[2020-05-21 09:21] LABS: BUN/Creatinine Ratio 23.8; Bilirubin, Total 1.1 mg/dL (0.2-1.0); Calcium 8.9 mg/dL (8.5-10.1)
== END | disposition home or self-care (01) ==
LOC: LAB 08:08
PROVIDERS: ATTEND Physician Assistant
DX: C61 Malignant neoplasm of prostate (principal); I50.22 Chronic systolic (congestive) heart failure; I48.20 Chronic atrial fibrillation, unspecified; E78.5 Hyperlipidemia, unspecified; R97.20 Elevated prostate specific antigen [PSA]
CPT/HCPCS: 36415; 80053; 80061; 84153; 85025

== ENCOUNTER → 2021-07-09 | Outpatient (CLI) | payer OTHER ==
[2021-07-09 07:36] LABS: Basophils # (auto) 0 10 ^3/uL (0-0.2); Basophils % (auto) 0.7 % (0.0-2.0); Eosinophils # (auto) 0.2 10 ^3/uL (0-0.8); Eosinophils % (auto) 4.2 % (0.0-7.0); Hematocrit 41.8 % (41.0-53.0); Hemoglobin 14.1 g/dL (13.5-17.5); Lymphocytes # (auto) 0.9 10 ^3/uL (0.4-5.4); Lymphocytes % (auto) 20.6 % (10.0-50.0); Mean Corpuscular Hemoglobin 31.4 pg (28.0-32.0); Mean Corpuscular Hgb Conc. 33.7 g/dL (32.0-36.0); Mean Corpuscular Volume 93.3 fL (80.0-100.0); Monocytes # (auto) 0.4 10 ^3/uL (0-1.3); Neutrophils # (auto) 2.8 10 ^3/uL (1.6-8.6); Neutrophils % (auto) 65.5 % (37.0-80.0); Nucleated Red Blood Cells % 0.1 %; Red Blood Cells 4.48 10^6/uL (4.5-5.90); Red Cell Distribution Width 13.6 % (11.8-14.3); White Blood Cell 4.3 10^3/uL (4.4-10.8)
[2021-07-09 08:21] LABS: Calcium 9.7 mg/dL (8.5-10.1)
[2021-07-09 08:25] LABS: BUN/Creatinine Ratio 20.9; Total Protein 7.1 g/dL (6.4-8.2)
== END | disposition home or self-care (01) ==
LOC: LAB 07:19
PROVIDERS: ATTEND Nurse Practitioner Family
DX: Z00.00 Encounter for general adult medical examination without abnormal findings (principal); I48.91 Unspecified atrial fibrillation; C61 Malignant neoplasm of prostate; I11.0 Hypertensive heart disease with heart failure; I50.9 Heart failure, unspecified
CPT/HCPCS: 36415; 80053; 80061; 84153; 85025

== ENCOUNTER → 2022-06-09 | Outpatient (CLI) | payer OTHER ==
[2022-06-09 07:37] LABS: Basophils # (auto) 0.1 10 ^3/uL (0-0.2); Basophils % (auto) 1.1 % (0.0-2.0); Eosinophils # (auto) 0.1 10 ^3/uL (0-0.8); Eosinophils % (auto) 2.6 % (0.0-7.0); Hematocrit 36.9 % (41.0-53.0); Hemoglobin 12.7 g/dL (13.5-17.5); Lymphocytes # (auto) 0.7 10 ^3/uL (0.4-5.4); Lymphocytes % (auto) 15.8 % (10.0-50.0); Mean Corpuscular Hemoglobin 30.5 pg (28.0-32.0); Mean Corpuscular Hgb Conc. 34.5 g/dL (32.0-36.0); Mean Corpuscular Volume 88.2 fL (80.0-100.0); Monocytes # (auto) 0.5 10 ^3/uL (0-1.3); Monocytes % (auto) 10.5 % (0.0-12.0); Neutrophils # (auto) 3.2 10 ^3/uL (1.6-8.6); Nucleated Red Blood Cells % 0.2 %; Red Blood Cells 4.18 10^6/uL (4.5-5.90); Red Cell Distribution Width 14.1 % (11.8-14.3); White Blood Cell 4.6 10^3/uL (4.4-10.8)
[2022-06-09 08:15] LABS: BUN/Creatinine Ratio 18.6 (10.0-20.0); Calcium 8.8 mg/dL (8.5-10.1); Potassium 4.1 mmol/L (3.5-5.1)
[2022-06-09 08:19] LABS: Total Protein 6.1 g/dL (6.4-8.2)
[2022-06-09 08:23] LABS: Free T4 (Free Thyroxine) 0.91 ng/dL (0.89-1.76)
[2022-06-09 09:06] LABS: Prostate Specific Antigen > 100.00 ng/mL (0.0-4.0)
== END | disposition home or self-care (01) ==
LOC: LAB 07:18
PROVIDERS: ATTEND Nurse Practitioner Family
DX: I48.21 Permanent atrial fibrillation (principal); F41.9 Anxiety disorder, unspecified
CPT/HCPCS: 36415; 80053; 80061; 84153; 84439; 84443; 85025